=== PATIENT | female | born 2000 | race African-American/Black ===

== ENCOUNTER 2021-02-10 19:10 | Observation (INO) ==
[2021-02-10] MEDS ORDERED: cefTRIAXone 1 gm/50 mL NS BAG 1 GM/50 ML BAG IV ONE (20:22)
[2021-02-10] MEDS ORDERED: Lactated Ringers 1000 ml BAG IV.FLUID IV ONE (20:22)
[2021-02-10] MEDS ORDERED: Lactated Ringers 1000 ml BAG 1,000 ML IV SCH (21:00)
[2021-02-10] MEDS ORDERED: Ondansetron 4 mg VIAL 2 MG/ML 2 ml VIAL IV PRN (21:02)
[2021-02-10 21:51] LABS: ABS Basophils 0.1 10^3/ul (0-0.2); ABS Eosinophils 0.3 10^3/ul (0-0.6); ABS Lymphocytes 1.5 10^3/ul (1.0-4.8); ABS Neutrophils 5.6 10^3/ul (1.5-7.7); Eosinophil % 3.7 %; Hematocrit 37 % (35-47); Hemoglobin 12.8 g/dL (12.0-16.0); Lymphocyte % 17.9 %; Mean Corpuscular HGB Conc 35 g/dL (31-36); Mean Corpuscular Hemoglobin 32 pg (27-31); Mean Corpuscular Volume 94 fL (80-97); Mean Platelet Volume 9.5 fL (7.4-10.4); Platelet Count 297 10^3/uL (150-450); Red Blood Count 3.95 10^6 /uL (3.70-4.87); Red Cell Distribution Width 14 % (10-15); White Blood Count 8.6 10^3/uL (3.5-10.8)
[2021-02-10 22:03] LABS: Albumin 4.4 g/dL (3.2-5.2); Albumin/Globulin Ratio 1.2 (1-3); C Reactive Protein 98.67 mg/L (<8.01); Calcium 9.4 mg/dL (8.6-10.3); Globulin 3.7 g/dL (2-4); Potassium 3.7 mmol/L (3.5-5.0); Total Bilirubin 0.4 mg/dL (0.2-1.0); Total Protein 8.1 g/dL (6.4-8.9)
[2021-02-10 22:04] LABS: Rapid COVID-19 Molecular Undetected (Undetected)
[2021-02-11] MEDS: Amphetamine MIXED SALT 10mgTAB PO SCH ×2 (08:52→17:43)
[2021-02-11] MEDS: cefTRIAXone 2 GM ADDV.VIAL 2 GM in NS 0.9% 100 ml BAG 100 ML IV SCH (08:53)
[2021-02-12 08:53] LABS: ABS Eosinophils 0.3 10^3/ul (0-0.6); ABS Lymphocytes 1.5 10^3/ul (1.0-4.8); ABS Monocytes 0.9 10^3/ul (0-0.8); ABS Neutrophils 2.7 10^3/ul (1.5-7.7); Eosinophil % 5.5 %; Hematocrit 37 % (35-47); Hemoglobin 12.6 g/dL (12.0-16.0); Lymphocyte % 28.1 %; Mean Corpuscular HGB Conc 34 g/dL (31-36); Mean Corpuscular Hemoglobin 32 pg (27-31); Mean Corpuscular Volume 94 fL (80-97); Mean Platelet Volume 9.1 fL (7.4-10.4); Platelet Count 275 10^3/uL (150-450); Red Blood Count 3.98 10^6 /uL (3.70-4.87); Red Cell Distribution Width 13 % (10-15); White Blood Count 5.4 10^3/uL (3.5-10.8)
[2021-02-12] MEDS: Amphetamine MIXED SALT 10mgTAB PO SCH (09:58)
[2021-02-12] MEDS: cefTRIAXone 2 GM ADDV.VIAL 2 GM in NS 0.9% 100 ml BAG 100 ML IV SCH (09:58)
[2021-02-12 11:56] VITALS: BP 77/39
== END 2021-02-12 13:20 | disposition home or self-care (01) ==
LOC: MED 19:10 → ED 19:10 → EDHOLD 19:10 → SUATTDRO 02-11 02:01 → MED 02-11 02:01 → SSU 02-11 23:21
PROVIDERS: ADMIT Internal Medicine; ATTEND Internal Medicine

== ENCOUNTER 2022-03-31 12:33 | Observation (INO) ==
[2022-03-31] MEDS ORDERED: LORazepam 2 mg VIAL 1 ml ONE (12:48)
[2022-03-31] MEDS ORDERED: LORazepam 2 mg VIAL 1 ml IV PUSH ONE (12:51)
[2022-03-31] MEDS ORDERED: Lorazepam PYXIS KEY PRN (12:51)
[2022-03-31 13:34] LABS: ABS Eosinophils 0.1 10^3/ul (0-0.6); ABS Lymphocytes 0.7 10^3/ul (1.0-4.8); ABS Monocytes 0.6 10^3/ul (0-0.8); ABS Neutrophils 9.6 10^3/ul (1.5-7.7); Eosinophil % 0.7 %; Hematocrit 36 % (35-47); Hemoglobin 11.7 g/dL (12.0-16.0); Lymphocyte % 6.7 %; Mean Corpuscular HGB Conc 33 g/dL (31-36); Mean Corpuscular Hemoglobin 31 pg (27-31); Mean Corpuscular Volume 95 fL (80-97); Mean Platelet Volume 8.5 fL (7.4-10.4); Platelet Count 273 10^3/uL (150-450); Red Blood Count 3.75 10^6 /uL (3.70-4.87); Red Cell Distribution Width 14 % (10-15)
[2022-03-31 14:33] LABS: ALT 12 U/L (7-52); AST 14 U/L (13-39); Acetaminophen < 15 mcg/mL; Albumin 3.1 g/dL (3.2-5.2); Albumin/Globulin Ratio 1.9 (1-3); Alcohol, S 13 mg/dL (<13); Alkaline Phosphatase 28 U/L (35-149); Blood Urea Nitrogen 6 mg/dL (6-24); Globulin 1.6 g/dL (2-4); Glucose 68 mg/dL (70-100); HCG Pregnancy < 0.60 mIU/mL; Potassium 3.1 mmol/L (3.5-5.0); Salicylate < 2.50 mg/dL (<30); Sodium 145 mmol/L (135-145); Total Protein 4.7 g/dL (6.4-8.9); eGFR CKD-EPI 135.1 (>60)
[2022-03-31 14:37] LABS: Anion Gap 14 mmol/L (2-11); CO2 Carbon Dioxide 13 mmol/L (22-32); Chloride 118 mmol/L (101-111)
[2022-03-31 14:42] LABS: TSH Ultra Thyroid Stim Horm 0.87 mcIU/mL (0.34-5.60)
[2022-03-31] MEDS ORDERED: Lactated Ringers 1000 ml BAG 1,000 ML IV ONE (14:46)
[2022-03-31] MEDS ORDERED: CALCIUM GLUCONATE 1GM/50ML NS 1 GM/50 ML BAG IV ONE (14:59)
[2022-03-31 15:22] LABS: Venous Bicarbonate HCO3 23.8 mmol/L (24-28)
[2022-03-31 15:58] LABS: Creatine Kinase 147 U/L (10-223); Indirect Bilirubin 0.1 mg/dL (0.3-1.0)
[2022-03-31] MEDS ORDERED: Calcium Gluconate 2 GM in NS 0.9% 100 ml BAG 100 ML IVPB ONE (16:05)
[2022-03-31 16:34] LABS: Magnesium 1.3 mg/dL (1.9-2.7)
[2022-03-31] MEDS ORDERED: Magnesium Sulf 4 GM/100 ML IV 4,000 MG/100 ML BAG IVPB ONE (17:22)
[2022-03-31 23:03] LABS: Urine Appearance Clear; Urine Bilirubin Negative (Negative); Urine Blood Trace (Intact) (Negative); Urine Color Yellow; Urine Glucose Negative (Negative); Urine Ketones Trace (Negative); Urine Nitrite Negative (Negative); Urine Protein Negative (Negative); Urine Specific Gravity 1.015 (1.005-1.030); Urine Urobilinogen 0.2 (Negative) (Negative)
[2022-03-31 23:10] LABS: Urine Bacteria 1+ (Absent); Urine Red Blood Cell Trace(0-2/hpf) (Absent); Urine White Blood Cell 1+(6-10/hpf) (Absent)
[2022-03-31 23:17] LABS: Urine Benzodiazepine Screen None Detected (None Detect); Urine Cannabinoids Screen None Detected (None Detect); Urine Opiates Screen None Detected (None Detect)
[2022-04-01 05:45] LABS: ABS Basophils 0.1 10^3/ul (0-0.2); ABS Eosinophils 0.2 10^3/ul (0-0.6); ABS Lymphocytes 1.7 10^3/ul (1.0-4.8); ABS Monocytes 0.8 10^3/ul (0-0.8); ABS Neutrophils 3.9 10^3/ul (1.5-7.7); Eosinophil % 3.6 %; Hematocrit 36 % (35-47); Hemoglobin 12.3 g/dL (12.0-16.0); Lymphocyte % 25.2 %; Mean Corpuscular HGB Conc 34 g/dL (31-36); Mean Corpuscular Hemoglobin 32 pg (27-31); Mean Corpuscular Volume 95 fL (80-97); Mean Platelet Volume 8.5 fL (7.4-10.4); Nucleated Red Blood Cells % 0.1; Platelet Count 268 10^3/uL (150-450); Red Blood Count 3.85 10^6 /uL (3.70-4.87); Red Cell Distribution Width 14 % (10-15); White Blood Count 6.6 10^3/uL (3.5-10.8)
[2022-04-01 06:36] LABS: Calcium 8.3 mg/dL (8.6-10.3); Potassium 3.6 mmol/L (3.5-5.0); eGFR CKD-EPI 130.2 (>60)
[2022-04-01] MEDS ORDERED: Lorazepam PYXIS KEY PRN (07:53)
[2022-04-01] MEDS ORDERED: LORazepam 2 mg VIAL 1 ml IV PUSH PRN (07:53)
[2022-04-01 07:54] LABS: Magnesium 2.1 mg/dL (1.9-2.7)
[2022-04-01 11:03] LABS: Phosphorus 4.6 mg/dL (2.5-5.0)
[2022-04-01] MEDS ORDERED: Al Hydrox/Mg Hydrox/Simet LIQ 30 ML UDC PO PRN (12:11)
[2022-04-02 08:27] LABS: HDL Cholesterol 76.2 mg/dL
[2022-04-02] MEDS ORDERED: Influenza vaccine *QUAD* *2022-23* 0.5 ML SYRINGE IM ONE (09:00)
[2022-04-02] MEDS: Nitrofurantoin (monohydrate/macrocrystals) 100 mg CAP PO SCH (20:24)
[2022-04-03 08:49] VITALS: BP 89/51
[2022-04-03] MEDS: Nitrofurantoin (monohydrate/macrocrystals) 100 mg CAP PO SCH (09:59)
== END 2022-04-03 15:30 ==
LOC: EDHOLD 12:33 → ED 12:33 → SUATTDRO 15:45 → BSU 04-01 14:07
PROVIDERS: ADMIT Internal Medicine; ATTEND Internal Medicine